=== PATIENT | female | born 1970 ===

== ENCOUNTER 2021-08-12 13:00 | Emergency (ER) | payer SELFPAY ==
[~2021-08-12] VITALS: Ht 165.1 cm; Wt 54.4 kg
[2021-08-12 18:55] VITALS: BP 106/44
[2021-08-12] MEDS ORDERED: cefTRIAXone SOD 1,000 MG VL IM ONE (19:30)
== END 2021-08-12 19:45 | disposition home or self-care (01) ==
LOC: ER 13:00
DX: S02.5XXA Fracture of tooth (traumatic), initial encounter for closed fracture (principal); K04.7 Periapical abscess without sinus; X58.XXXA Exposure to other specified factors, initial encounter; Y93.89 Activity, other specified; Y92.89 Other specified places as the place of occurrence of the external cause; Y99.8 Other external cause status
CPT/HCPCS: 96372; 99283; J0696